=== PATIENT | female | born 2000 | race Two or more races ===

== ENCOUNTER 2024-12-30 19:24 | Emergency (ER) | payer MEDICAID, OTHER ==
[~2024-12-30] VITALS: Ht 157.5 cm; Wt 61.5 kg
[2024-12-30 19:41] VITALS: TEMP 98.6
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
[2024-12-30] MEDS: HYDROcodone-ACET 5/325MG TAB PO ONE (20:36)
[2024-12-30 20:37] VITALS: BP 105/70; PULSE 80; RESP 18; O2SAT 98
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
[2024-12-30] MEDS ORDERED: IBUP-1454 PO (21:14)
[2024-12-30] MEDS ORDERED: ACET500T58 PO (21:14)
== END 2024-12-30 22:19 | disposition home or self-care (01) ==
LOC: ER 19:24
DX: S39.012A Strain of muscle, fascia and tendon of lower back, initial encounter (principal); S20.219A Contusion of unspecified front wall of thorax, initial encounter; V43.52XA Car driver injured in collision with other type car in traffic accident, initial encounter; Y93.I9 Activity, other involving external motion; Y92.488 Other paved roadways as the place of occurrence of the external cause; Y99.8 Other external cause status
CPT/HCPCS: 71046; 72100